=== PATIENT | male | born 1945 | race Caucasian/White ===

== ENCOUNTER 2021-10-16 17:44 | Inpatient (IN) ==
[2021-10-16] MEDS ORDERED: Acetaminophen 325 MG TABLET PO PRN (20:28)
[2021-10-16] MEDS ORDERED: Ondansetron 4 MG/2 ML VIAL IVP PRN (20:28)
[2021-10-16] MEDS ORDERED: Naloxone 0.4 MG/ML INJ IVP PRN (20:28)
[2021-10-16] MEDS ORDERED: 0.9 % Sodium Chloride 1,000 ML ONE (23:27)
[2021-10-17] MEDS ORDERED: *HR* HYDROmorphone PF 0.5 MG/0.5 ML SYRINGE IVP PRN (01:04)
[2021-10-17] MEDS ORDERED: Isovue-300 50ML VIAL ONE (01:09)
[2021-10-17] MEDS ORDERED: *HR* Propofol 200 MG/20 ML VIAL IVP ONE (01:10)
[2021-10-17] MEDS ORDERED: *HR* FentaNYL (PF) 100 MCG/2 ML VIAL ONE (01:10)
[2021-10-17] MEDS ORDERED: Ondansetron 4 MG/2 ML VIAL ONE (01:11)
[2021-10-17] MEDS ORDERED: Lidocaine -MPF 2% 2 ML VIAL ONE (01:11)
[2021-10-17] MEDS ORDERED: *HR* Succinylcholine 200 MG/10 ML VIAL IVP ONE (01:11)
[2021-10-17] MEDS ORDERED: Lidocaine HCL 4 ML Topical Solution (Laryng-O-Jet Kit Sterile Pak) TP ONE (01:13)
[2021-10-17] MEDS ORDERED: Famotidine 20 MG/2 ML VIAL ONE (01:16)
[2021-10-17 02:54] LABS: Bacteria,Urine Few per hpf (None-Few); Bilirubin,Urine Negative (Negative); Blood,Urine Large (Negative); Clarity,Urine Ex.Turbid (Clear); Color,Urine Light-Orange (Yellow); Glucose,Urine (UA) Normal (Normal); Ketones,Urine Negative (Negative); Leukocyte Esterase,Urine Large (Negative); Nitrite,Urine Negative (Negative); PH,Urine 7.5 pH Units (5.0-8.0); Protein,Urine >=300 mg/dL (Neg-Trace); RBC,Urine TNTC per hpf (0-3); Specific Gravity,Urine 1.014 (1.010-1.025); Urobilinogen,Urine Normal (Normal); WBC,Urine TNTC per hpf (0-3)
[2021-10-17 02:59] LABS: Adenovirus Not Detected (Not Detect); Bordetella Pertussis Not Detected (Not Detect); Chlamydophila pneumoniae Not Detected (Not Detect); Coronavirus 229E Not Detected (Not Detect); Coronavirus HKU1 Not Detected (Not Detect); Coronavirus NL63 Not Detected (Not Detect); Coronavirus OC43 Not Detected (Not Detect); Human Metapneumovirus Not Detected (Not Detect); Human Rhinovirus/Enterovirus Not Detected (Not Detect); Influenza A Subtype 2009 H1 Not Detected (Not Detect); Influenza B Not Detected (Not Detect); Mycoplasma pneumoniae Not Detected (Not Detect); Parainfluenza Virus 1 Not Detected (Not Detect); Parainfluenza Virus 2 Not Detected (Not Detect); Parainfluenza Virus 3 Not Detected (Not Detect); Parainfluenza Virus 4 Not Detected (Not Detect); Respiratory Syncytial Virus Not Detected (Not Detect); SARS-CoV-2 Not Detected (Not Detect)
[2021-10-17] MEDS ORDERED: Naloxone 0.4 MG/ML INJ IVP PRN (03:43)
[2021-10-17] MEDS ORDERED: Acetaminophen 325 MG TABLET PO PRN ×2 (03:43→14:33)
[2021-10-17] MEDS ORDERED: Ondansetron 4 MG/2 ML VIAL IVP PRN (03:43)
[2021-10-17 05:39] LABS: Basophils # 0.1 K/mcL (0.0-0.2); Basophils % 0.3 %; Eosinophils % 0.1 %; Hemoglobin 9.5 g/dL (12.9-16.9); Immature Granulocytes % 2.2 % (0-4); Lymphocytes # 0.4 K/mcL (0.6-4.6); Lymphocytes % 2.4 %; Mean Corpuscular HGB Conc 30.6 g/dL (31.6-35.5); Mean Corpuscular Hemoglobin 31.5 pg (28.0-33.3); Mean Corpuscular Volume 102.6 fL (83.0-100.0); Mean Platelet Volume 10.4 fL (9.4-12.4); Monocytes # 1.5 K/mcL (0.0-1.3); Monocytes % 8.8 %; Neutrophils # 14.7 K/mcL (1.6-8.9); Nucleated Red Blood Cells 0.5 /100 WBC (0); Platelet Count 351 K/mcL (140-400); Red Blood Count 3.02 M/mcL (4.19-5.50); Red Cell Distribution Width 15.9 % (11.5-14.5); Segmented Neutrophils % 86.2 %; White Blood Count 17.1 K/mcL (4.3-11.1)
[2021-10-17 05:45] LABS: INR 3.1; Prothrombin Time 34.4 Seconds (9.4-12.1)
[2021-10-17 05:56] LABS: Albumin 3.2 g/dL (3.5-5.7); Albumin/Globulin Ratio 1.1 (1.1-2.2); Bilirubin,Direct 0.7 mg/dL (0.0-0.2); Bilirubin,Indirect 0.5 mg/dL (0.0-1.0); Bilirubin,Total 1.2 mg/dL (0.3-1.0); Magnesium 2.3 mg/dL (1.6-2.6); Potassium 3.8 mEq/L (3.5-5.1); Total Protein 6.2 g/dL (6.4-8.9); Troponin I 0.11 ng/mL (< 0.04)
[2021-10-17 06:03] LABS: Thyroid Stimulating Hormone 2.769 mcIU/mL (0.340-5.600)
[2021-10-17] MEDS ORDERED: Piperacillin/Tazobactam 3.375 GM in 0.9 % Sodium Chloride Mini Bag 100 ML IVPB SCH ×2 (08:00)
[2021-10-17] MEDS: Loratadine 10 MG TABLET PO SCH (08:06)
[2021-10-17] MEDS: Renal Vitamin 1 CAP CAPSULE PO SCH (08:06)
[2021-10-17] MEDS: predniSONE 5 MG TABLET PO SCH ×2 (08:06→20:07)
[2021-10-17] MEDS ORDERED: predniSONE 5 MG TABLET PO SCH (09:00)
[2021-10-17] MEDS ORDERED: Renal Vitamin 1 CAP CAPSULE PO SCH (09:00)
[2021-10-17] MEDS ORDERED: Loratadine 10 MG TABLET PO SCH (09:00)
[2021-10-17 11:34] LABS: Hepatitis B Surface Antibody < 3.10 mIU/mL
[2021-10-17 13:26] LABS: Hepatitis B Surface Antigen Nonreactive (Nonreactive)
[2021-10-17 16:16] LABS: Hematocrit 28.2 % (37.5-50.1); Hemoglobin 8.9 g/dL (12.9-16.9)
[2021-10-17] MEDS: Piperacillin/Tazobactam 3.375 GM in 0.9 % Sodium Chloride Mini Bag 100 ML IVPB SCH (20:05)
[2021-10-17] MEDS: Melatonin 3 MG TABLET PO SCH (20:07)
[2021-10-18 00:35] LABS: Hematocrit 29.4 % (37.5-50.1); Hemoglobin 9.1 g/dL (12.9-16.9)
[2021-10-18 00:38] LABS: INR 2.4; Prothrombin Time 26.8 Seconds (9.4-12.1)
[2021-10-18 00:52] LABS: % Iron Saturation 36 % (20-55); Albumin 2.9 g/dL (3.5-5.7); Albumin/Globulin Ratio 0.9 (1.1-2.2); Calcium 9.1 mg/dL (8.6-10.3); Globulin 3.2 g/dL (2.4-3.5); Iron 69 mcg/dL (65-175); Phosphorous 4.1 mg/dL (2.7-4.5); Potassium 4.1 mEq/L (3.5-5.1); Total Protein 6.1 g/dL (6.4-8.9); Transferrin 136 mg/dL (203-362)
[2021-10-18 01:25] LABS: Hematocrit 28.8 % (37.5-50.1); Mean Corpuscular HGB Conc 31.3 g/dL (31.6-35.5); Mean Corpuscular Hemoglobin 31.3 pg (28.0-33.3); Mean Platelet Volume 10.3 fL (9.4-12.4); Platelet Count 365 K/mcL (140-400); Red Blood Count 2.88 M/mcL (4.19-5.50); Red Cell Distribution Width 15.7 % (11.5-14.5); Segmented Neutrophils % 83.2 %; White Blood Count 21.9 K/mcL (4.3-11.1)
[2021-10-18 01:26] LABS: Basophils # 0.1 K/mcL (0.0-0.2); Basophils % 0.3 %; Eosinophils % 0.1 %; Immature Granulocytes % 2.7 % (0-4); Lymphocytes # 0.9 K/mcL (0.6-4.6); Monocytes # 2.1 K/mcL (0.0-1.3); Monocytes % 9.7 %; Neutrophils # 18.2 K/mcL (1.6-8.9); Nucleated Red Blood Cells 0.2 /100 WBC (0)
[2021-10-18 03:01] LABS: Ferritin > 1500 ng/mL (20-250)
[2021-10-18] MEDS ORDERED: 0.9 % Sodium Chloride 250 ML IVC PRN (05:59)
[2021-10-18] MEDS ORDERED: 0.9 % Sodium Chloride 2,000 ML PRIME SCH (06:00)
[2021-10-18] MEDS: Calcium Acetate 667 MG CAPSULE PO SCH ×3 (08:17→18:13)
[2021-10-18] MEDS: Piperacillin/Tazobactam 3.375 GM in 0.9 % Sodium Chloride Mini Bag 100 ML IVPB SCH ×2 (08:17→21:01)
[2021-10-18] MEDS: Renal Vitamin 1 CAP CAPSULE PO SCH (08:20)
[2021-10-18] MEDS: predniSONE 5 MG TABLET PO SCH ×2 (08:20→21:00)
[2021-10-18] MEDS: Loratadine 10 MG TABLET PO SCH (08:20)
[2021-10-18] MEDS: Melatonin 3 MG TABLET PO SCH (21:00)
[2021-10-19 02:41] LABS: Basophils # 0.1 K/mcL (0.0-0.2); Basophils % 0.2 %; Eosinophils # 0.1 K/mcL (0.0-0.6); Eosinophils % 0.3 %; Hematocrit 27.8 % (37.5-50.1); Hemoglobin 9.1 g/dL (12.9-16.9); Lymphocytes # 0.9 K/mcL (0.6-4.6); Mean Corpuscular HGB Conc 32.7 g/dL (31.6-35.5); Mean Corpuscular Hemoglobin 32.4 pg (28.0-33.3); Mean Corpuscular Volume 98.9 fL (83.0-100.0); Mean Platelet Volume 10.1 fL (9.4-12.4); Monocytes # 2.5 K/mcL (0.0-1.3); Monocytes % 11.7 %; Nucleated Red Blood Cells 0.6 /100 WBC (0); Platelet Count 329 K/mcL (140-400); Red Blood Count 2.81 M/mcL (4.19-5.50); Red Cell Distribution Width 15.4 % (11.5-14.5); Segmented Neutrophils % 80.8 %
[2021-10-19 02:57] LABS: INR 3.1; Prothrombin Time 34.4 Seconds (9.4-12.1)
[2021-10-19 03:03] LABS: Albumin 2.8 g/dL (3.5-5.7); Albumin/Globulin Ratio 0.9 (1.1-2.2); Bilirubin,Total 1.1 mg/dL (0.3-1.0); Potassium 3.7 mEq/L (3.5-5.1); Total Protein 5.8 g/dL (6.4-8.9)
[2021-10-19] MEDS: Renal Vitamin 1 CAP CAPSULE PO SCH (09:59)
[2021-10-19] MEDS: Calcium Acetate 667 MG CAPSULE PO SCH ×3 (09:59→17:57)
[2021-10-19] MEDS: Loratadine 10 MG TABLET PO SCH (09:59)
[2021-10-19] MEDS: predniSONE 5 MG TABLET PO SCH ×2 (10:00→21:09)
[2021-10-19] MEDS: Piperacillin/Tazobactam 3.375 GM in 0.9 % Sodium Chloride Mini Bag 100 ML IVPB SCH ×2 (10:00→21:09)
[2021-10-19] MEDS: Doxycycline 100 MG in 0.9 % Sodium Chloride Mini Bag 100 ML IVPB SCH (13:56)
[2021-10-19] MEDS ORDERED: Lactulose Oral Soln 20 GM/30 ML UDC PO ONE (16:47)
[2021-10-19] MEDS: Melatonin 3 MG TABLET PO SCH (21:08)
[2021-10-20] MEDS: Doxycycline 100 MG in 0.9 % Sodium Chloride Mini Bag 100 ML IVPB SCH ×2 (01:20→14:15)
[2021-10-20 02:40] LABS: Basophils # 0.1 K/mcL (0.0-0.2); Basophils % 0.5 %; Eosinophils # 0.1 K/mcL (0.0-0.6); Eosinophils % 0.3 %; Hematocrit 29.3 % (37.5-50.1); Immature Granulocytes % 5.3 % (0-4); Lymphocytes # 1.1 K/mcL (0.6-4.6); Mean Corpuscular HGB Conc 30.7 g/dL (31.6-35.5); Mean Corpuscular Hemoglobin 30.8 pg (28.0-33.3); Mean Corpuscular Volume 100.3 fL (83.0-100.0); Mean Platelet Volume 10.4 fL (9.4-12.4); Monocytes # 2.2 K/mcL (0.0-1.3); Monocytes % 10.5 %; Nucleated Red Blood Cells 1.1 /100 WBC (0); Platelet Count 357 K/mcL (140-400); Red Blood Count 2.92 M/mcL (4.19-5.50); Red Cell Distribution Width 15.8 % (11.5-14.5); Segmented Neutrophils % 78.4 %
[2021-10-20 02:42] LABS: Neutrophils # 16.5 K/mcL (1.6-8.9)
[2021-10-20 02:48] LABS: INR 2.2; Prothrombin Time 24.6 Seconds (9.4-12.1)
[2021-10-20 02:59] LABS: Albumin 2.8 g/dL (3.5-5.7); Albumin/Globulin Ratio 0.9 (1.1-2.2); Bilirubin,Total 1.4 mg/dL (0.3-1.0); Globulin 3.1 g/dL (2.4-3.5); Potassium 3.6 mEq/L (3.5-5.1); Total Protein 5.9 g/dL (6.4-8.9)
[2021-10-20] MEDS: Loratadine 10 MG TABLET PO SCH (09:08)
[2021-10-20] MEDS: Renal Vitamin 1 CAP CAPSULE PO SCH (09:08)
[2021-10-20] MEDS: predniSONE 5 MG TABLET PO SCH ×2 (09:08→22:21)
[2021-10-20] MEDS: Piperacillin/Tazobactam 3.375 GM in 0.9 % Sodium Chloride Mini Bag 100 ML IVPB SCH ×2 (09:09→22:21)
[2021-10-20] MEDS: Calcium Acetate 667 MG CAPSULE PO SCH ×3 (09:10→18:00)
[2021-10-20] MEDS: *HR* OxyCODONE/APAP 5/325 TABLET PO PRN (12:02)
[2021-10-20] MEDS ORDERED: *HR* Phytonadione 5 MG TABLET PO ONE (14:13)
[2021-10-20] MEDS ORDERED: HydrOXYzine SYP 10 MG/5 ML UDC PO PRN (14:21)
[2021-10-20] MEDS: Melatonin 3 MG TABLET PO SCH (22:21)
[2021-10-21] MEDS: Doxycycline 100 MG in 0.9 % Sodium Chloride Mini Bag 100 ML IVPB SCH ×3 (03:18→19:40)
[2021-10-21 03:26] LABS: Hematocrit 28.7 % (37.5-50.1); Hemoglobin 8.8 g/dL (12.9-16.9); Mean Corpuscular HGB Conc 30.7 g/dL (31.6-35.5); Mean Corpuscular Hemoglobin 30.9 pg (28.0-33.3); Mean Corpuscular Volume 100.7 fL (83.0-100.0); Mean Platelet Volume 10.3 fL (9.4-12.4); Nucleated Red Blood Cells 3.1 /100 WBC (0); Platelet Count 357 K/mcL (140-400); Red Blood Count 2.85 M/mcL (4.19-5.50); Red Cell Distribution Width 15.9 % (11.5-14.5); White Blood Count 23.6 K/mcL (4.3-11.1)
[2021-10-21 03:33] LABS: INR 1.6; Prothrombin Time 17.8 Seconds (9.4-12.1)
[2021-10-21 03:43] LABS: Albumin 2.9 g/dL (3.5-5.7); Bilirubin,Total 1.8 mg/dL (0.3-1.0); Calcium 10.8 mg/dL (8.6-10.3); Globulin 2.8 g/dL (2.4-3.5); Potassium 3.7 mEq/L (3.5-5.1); Total Protein 5.7 g/dL (6.4-8.9)
[2021-10-21 04:26] LABS: Eosinophils # 0.5 K/mcL (0.0-0.6); Lymphocytes # 1.9 K/mcL (0.6-4.6); Monocytes # 1.9 K/mcL (0.0-1.3); Neutrophils # 18.4 K/mcL (1.6-8.9)
[2021-10-21] MEDS: Renal Vitamin 1 CAP CAPSULE PO SCH (08:23)
[2021-10-21] MEDS: predniSONE 5 MG TABLET PO SCH ×2 (08:23→19:41)
[2021-10-21] MEDS: Loratadine 10 MG TABLET PO SCH (08:23)
[2021-10-21] MEDS: Piperacillin/Tazobactam 3.375 GM in 0.9 % Sodium Chloride Mini Bag 100 ML IVPB SCH ×2 (08:23→21:00)
[2021-10-21] MEDS: Calcium Acetate 667 MG CAPSULE PO SCH ×3 (08:23→19:40)
[2021-10-21] MEDS ORDERED: *HR* Heparin 10,000 UNIT/10 ML VIAL IV PRN ×2 (09:57)
[2021-10-21] MEDS ORDERED: 0.9 % Sodium Chloride 250 ML IVC PRN (09:57)
[2021-10-21] MEDS: *HR* OxyCODONE/APAP 5/325 TABLET PO PRN (18:17)
[2021-10-21] MEDS: Melatonin 3 MG TABLET PO SCH (19:40)
[2021-10-22 03:28] LABS: Nucleated Red Blood Cells 3.6 /100 WBC (0)
[2021-10-22 03:30] LABS: Mean Corpuscular Hemoglobin 31.1 pg (28.0-33.3); Mean Corpuscular Volume 100.3 fL (83.0-100.0); Mean Platelet Volume 10.4 fL (9.4-12.4); Platelet Count 358 K/mcL (140-400); Red Blood Count 2.89 M/mcL (4.19-5.50); Red Cell Distribution Width 16.2 % (11.5-14.5); White Blood Count 25.2 K/mcL (4.3-11.1)
[2021-10-22 03:47] LABS: Albumin 2.9 g/dL (3.5-5.7); Bilirubin,Total 2.3 mg/dL (0.3-1.0); Calcium 10.4 mg/dL (8.6-10.3); Globulin 2.8 g/dL (2.4-3.5); Potassium 3.6 mEq/L (3.5-5.1); Total Protein 5.7 g/dL (6.4-8.9)
[2021-10-22 04:03] LABS: INR 1.4; Prothrombin Time 15.7 Seconds (9.4-12.1)
[2021-10-22 04:17] LABS: Platelet Estimate Normal (Normal)
[2021-10-22 04:18] LABS: Neutrophils # 21.7 K/mcL (1.6-8.9)
[2021-10-22] MEDS: Doxycycline 100 MG in 0.9 % Sodium Chloride Mini Bag 100 ML IVPB SCH ×2 (07:28→16:28)
[2021-10-22] MEDS: Renal Vitamin 1 CAP CAPSULE PO SCH (09:03)
[2021-10-22] MEDS: Loratadine 10 MG TABLET PO SCH (09:03)
[2021-10-22] MEDS: predniSONE 5 MG TABLET PO SCH ×2 (09:03→22:18)
[2021-10-22] MEDS: Piperacillin/Tazobactam 3.375 GM in 0.9 % Sodium Chloride Mini Bag 100 ML IVPB SCH ×2 (09:03→22:19)
[2021-10-22] MEDS: Calcium Acetate 667 MG CAPSULE PO SCH ×3 (09:03→16:28)
[2021-10-22] MEDS: Melatonin 3 MG TABLET PO SCH (22:18)
[2021-10-23] MEDS: Doxycycline 100 MG in 0.9 % Sodium Chloride Mini Bag 100 ML IVPB SCH (06:48)
[2021-10-23 07:39] LABS: Hematocrit 29.9 % (37.5-50.1); Hemoglobin 9.2 g/dL (12.9-16.9); Lymphocytes # 1.4 K/mcL (0.6-4.6); Mean Corpuscular HGB Conc 30.8 g/dL (31.6-35.5); Mean Corpuscular Hemoglobin 31.2 pg (28.0-33.3); Mean Corpuscular Volume 101.4 fL (83.0-100.0); Mean Platelet Volume 10.5 fL (9.4-12.4); Nucleated Red Blood Cells 5.4 /100 WBC (0); Platelet Count 354 K/mcL (140-400); Red Blood Count 2.95 M/mcL (4.19-5.50); Red Cell Distribution Width 17.2 % (11.5-14.5)
[2021-10-23 07:43] LABS: Albumin 2.9 g/dL (3.5-5.7); Bilirubin,Total 2.7 mg/dL (0.3-1.0); Calcium 11.7 mg/dL (8.6-10.3); Globulin 2.9 g/dL (2.4-3.5); Potassium 3.8 mEq/L (3.5-5.1); Total Protein 5.8 g/dL (6.4-8.9)
[2021-10-23 07:48] LABS: INR 1.4; Prothrombin Time 15.2 Seconds (9.4-12.1)
[2021-10-23 08:28] LABS: Anisocytosis 1+ (Not Present); Hypochromasia Present (Not Present); Monocytes # 1.9 K/mcL (0.0-1.3); Neutrophils # 21.6 K/mcL (1.6-8.9); Platelet Estimate Normal (Normal)
[2021-10-23] MEDS ORDERED: Cefepime HCl 1,000 MG in 0.9 % Sodium Chloride 10 ML IVP ONE (08:30)
[2021-10-23] MEDS ORDERED: 0.9 % Sodium Chloride 250 ML IVC PRN (08:42)
[2021-10-23] MEDS ORDERED: *HR* Heparin 10,000 UNIT/10 ML VIAL IV PRN (08:42)
[2021-10-23] MEDS: predniSONE 5 MG TABLET PO SCH ×3 (09:08→16:41)
[2021-10-23] MEDS: Calcium Acetate 667 MG CAPSULE PO SCH ×2 (09:08→14:09)
[2021-10-23] MEDS: Renal Vitamin 1 CAP CAPSULE PO SCH (09:08)
[2021-10-23] MEDS: Loratadine 10 MG TABLET PO SCH (09:08)
[2021-10-23] MEDS: Piperacillin/Tazobactam 3.375 GM in 0.9 % Sodium Chloride Mini Bag 100 ML IVPB SCH (09:22)
[2021-10-23] MEDS ORDERED: Albumin 25% 25gram/100mL 25 GM/100 ML IV.SOLN IVPB ONE (19:59)
[2021-10-23] MEDS: Melatonin 3 MG TABLET PO SCH (20:54)
[2021-10-24] MEDS: Temazepam 15 MG CAPSULE PO SCH ×2 (00:43→21:19)
[2021-10-24 01:28] LABS: Hemoglobin 8.7 g/dL (12.9-16.9)
[2021-10-24 01:30] LABS: Hematocrit 27.9 % (37.5-50.1); Mean Corpuscular HGB Conc 31.2 g/dL (31.6-35.5); Mean Corpuscular Hemoglobin 31.4 pg (28.0-33.3); Mean Corpuscular Volume 100.7 fL (83.0-100.0); Mean Platelet Volume 10.8 fL (9.4-12.4); Nucleated Red Blood Cells 8.7 /100 WBC (0); Platelet Count 344 K/mcL (140-400); Red Blood Count 2.77 M/mcL (4.19-5.50); Red Cell Distribution Width 17.6 % (11.5-14.5)
[2021-10-24 01:45] LABS: Anisocytosis 1+ (Not Present); Platelet Estimate Normal (Normal)
[2021-10-24 01:47] LABS: Albumin 3.3 g/dL (3.5-5.7); Albumin/Globulin Ratio 1.1 (1.1-2.2); Bilirubin,Indirect 1.1 mg/dL (0.0-1.0); Bilirubin,Total 3.1 mg/dL (0.3-1.0); Calcium 10.5 mg/dL (8.6-10.3); Globulin 2.9 g/dL (2.4-3.5); Hypochromasia Present (Not Present); Lymphocytes # 3.9 K/mcL (0.6-4.6); Magnesium 2.1 mg/dL (1.6-2.6); Monocytes # 1.1 K/mcL (0.0-1.3); Neutrophils # 22.4 K/mcL (1.6-8.9); Phosphorous 2.3 mg/dL (2.7-4.5); Potassium 3.7 mEq/L (3.5-5.1); Total Protein 6.2 g/dL (6.4-8.9)
[2021-10-24] MEDS: Renal Vitamin 1 CAP CAPSULE PO SCH (08:40)
[2021-10-24] MEDS: Loratadine 10 MG TABLET PO SCH (08:40)
[2021-10-24] MEDS: predniSONE 5 MG TABLET PO SCH ×3 (08:46→14:32)
[2021-10-24] MEDS ORDERED: levoFLOXacin 750 MG/150 ML 750 MG/150 ML BAG IVPB ONE (09:00)
[2021-10-24] MEDS: Melatonin 3 MG TABLET PO SCH (21:19)
[2021-10-25 04:44] VITALS: PULSE 108
[2021-10-25 05:45] LABS: Hematocrit 29.7 % (37.5-50.1); Hemoglobin 9.1 g/dL (12.9-16.9); Mean Corpuscular HGB Conc 30.6 g/dL (31.6-35.5)
[2021-10-25 05:47] LABS: Mean Corpuscular Hemoglobin 31.6 pg (28.0-33.3); Mean Corpuscular Volume 103.1 fL (83.0-100.0); Mean Platelet Volume 10.8 fL (9.4-12.4); Nucleated Red Blood Cells 6.5 /100 WBC (0); Platelet Count 331 K/mcL (140-400); Red Blood Count 2.88 M/mcL (4.19-5.50); Red Cell Distribution Width 19.1 % (11.5-14.5); White Blood Count 26.7 K/mcL (4.3-11.1)
[2021-10-25 06:04] LABS: Calcium 11.5 mg/dL (8.6-10.3); Magnesium 2.3 mg/dL (1.6-2.6); Potassium 4.2 mEq/L (3.5-5.1)
[2021-10-25 06:40] LABS: Eosinophils # 0.5 K/mcL (0.0-0.6); Lymphocytes # 2.1 K/mcL (0.6-4.6); Monocytes # 1.1 K/mcL (0.0-1.3); Platelet Estimate Normal (Normal)
[2021-10-25] MEDS ORDERED: 0.9 % Sodium Chloride 250 ML IVC PRN (08:43)
[2021-10-25] MEDS ORDERED: *HR* Heparin 10,000 UNIT/10 ML VIAL IV PRN ×2 (08:43)
[2021-10-25] MEDS: predniSONE 5 MG TABLET PO SCH ×2 (09:55→13:19)
[2021-10-25] MEDS: Loratadine 10 MG TABLET PO SCH (09:55)
[2021-10-25] MEDS: Renal Vitamin 1 CAP CAPSULE PO SCH (09:55)
[2021-10-25] MEDS ORDERED: DiphenhydraMINE CREAM 28.4 GM TUBE TP PRN (10:20)
[2021-10-25 11:17] VITALS: BP 95/59; TEMP 97.9; O2SAT 96
[2021-10-26] MEDS ORDERED: levoFLOXacin 500 MG/100 ML 500 MG/100 ML BAG IVPB SCH (09:00)
== END 2021-10-25 17:54 | disposition hospice, home (50) | DRG 871 ==
LOC: 2ANU → SUATTDRO 21:11
PROVIDERS: ADMIT Internal Medicine; ATTEND Pharmacist
PROC: IRLIVER (2021-10-22 12:00)